=== PATIENT | female | born 1995 | race Hispanic/Latino ===

== ENCOUNTER 2017-10-26 23:39 | Emergency (ER) | payer OTHER ==
[2017-10-27] MEDS ORDERED: ORPHENADRINE CITRATE 30 MG/ML ML ONE (00:12)
[2017-10-27] MEDS ORDERED: KETOROLAC TROMETHAMINE 30MG/ML ONE (00:13)
== END 2017-10-27 00:55 | disposition home or self-care (01) ==
LOC: EDH 23:39
DX: S29.011A Strain of muscle and tendon of front wall of thorax, initial encounter (principal); X58.XXXA Exposure to other specified factors, initial encounter; Y93.89 Activity, other specified; Y92.89 Other specified places as the place of occurrence of the external cause; Y99.8 Other external cause status
CPT/HCPCS: 71045; 71100; 81025; 96372 ×2; 99285; J1885; J2360